=== PATIENT | female | born 1955 | race Caucasian/White ===

== ENCOUNTER 2021-04-13 04:11 | Emergency (ER) | payer MEDICARE, SELFPAY ==
[2021-04-13 04:43] LABS: HEMOGLOBIN 14.6 gm/dl (12.3-15.3); RED BLOOD COUNT 4.54 M/UL (4.00-5.10); WHITE BLOOD COUNT 8.9 K/UL (4.5-11.0)
[2021-04-13 05:11] LABS: BUN/CREATININE RATIO 13 (0-10)
== END 2021-04-13 08:15 | disposition home or self-care (01) ==
LOC: ER1 04:11 → CDU 06:22 → ER1 06:22
PROVIDERS: Emergency Medicine
DX: K80.20 Calculus of gallbladder without cholecystitis without obstruction (principal); J44.9 Chronic obstructive pulmonary disease, unspecified; I11.9 Hypertensive heart disease without heart failure; Z20.822 Contact with and (suspected) exposure to COVID-19
CPT/HCPCS: 0240U; 71045; 80053; 82550; 82553; 83605; 83690; 84484; 85025; 93005; 96374; 96375; 96376; 99284; J2270; J2405; Q9967